=== PATIENT | male | born 1985 | race Caucasian/White ===

== ENCOUNTER 2017-04-25 09:36 | Emergency (ER) | payer OTHER ==
[~2017-04-25] VITALS: Ht 188 cm; Wt 142.9 kg
[~2017-04-25 09:36] MED LIST: CIPROFLOXACIN500 M1 PO; DOXYCYCLINE 10100 MG PO; FLEXERIL PO; KEFLEX500 MG PO; NOHOMEMEDICATIONS; NORCO 5-325 TA1 EAC1 PO; NORCO 5-325 TA1 EACH PO; PERCOCET 7.5-31 EACH PO; PREDNISONE 20 M20 MG PO; ROBITUSSIN COU118 M5 PO; TESSALON PERLE100 M1 PO; TESSALON PERLE100 MG PO; ULTRAM 50MG TAB50 MG PO; VENTOLIN HFA 1818 GM INH
[2017-04-25 09:44] VITALS: BP 140/92
[2017-04-25] MEDS ORDERED: OMEPRAZOLE 20 M20 M1 PO (09:45)
[2017-04-25] MEDS ORDERED: UNICOMPLEX M TA1 TA1 PO (09:45)
[2017-04-25] MEDS ORDERED: ALEVE220 MG PO (09:46)
[2017-04-25] MEDS ORDERED: HYDROCODON-ACE1 EAC7 PO (09:51)
[2017-04-25] MEDS ORDERED: AZITHROMYCIN 2250 MG PO (09:51)
== END 2017-04-25 10:06 | disposition home or self-care (01) ==
LOC: M.ERS 09:36
DX: H66.92 Otitis media, unspecified, left ear (principal); Z90.49 Acquired absence of other specified parts of digestive tract; Z88.0 Allergy status to penicillin; Z91.041 Radiographic dye allergy status

== ENCOUNTER 2017-07-06 21:00 | Emergency (ER) | payer OTHER ==
[~2017-07-06] VITALS: Ht 188 cm; Wt 144.2 kg
[~2017-07-06 21:00] MED LIST changes: +ALEVE220 MG PO; +AZITHROMYCIN 2250 MG PO; +HYDROCODON-ACE1 EAC7 PO; +OMEPRAZOLE 20 M20 M1 PO; +UNICOMPLEX M TA1 TA1 PO
[2017-07-06 21:44] LABS: INFLUENZA A ANTIGEN None Detected (None Detect); INFLUENZA B ANTIGEN None Detected (None Detect)
[2017-07-06] MEDS ORDERED: PROMETHAZINE V473 ML PO (21:48)
[2017-07-06] MEDS ORDERED: ZPAK PO (21:48)
[2017-07-06] MEDS ORDERED: ACETAMINOPHEN-1 EAC1 PO (21:48)
[2017-07-06] MEDS ORDERED: TESSALON PERLE100 MG PO (21:48)
[2017-07-06] MEDS ORDERED: OSELB75 PO (21:57)
[2017-07-06 22:05] VITALS: BP 147/82
== END 2017-07-06 22:07 | disposition home or self-care (01) ==
LOC: M.ERS 21:00
PROVIDERS: Physician Assistant
DX: J02.9 Acute pharyngitis, unspecified (principal); Z90.49 Acquired absence of other specified parts of digestive tract; Z88.0 Allergy status to penicillin; Z91.041 Radiographic dye allergy status

== ENCOUNTER 2018-10-19 17:25 | Emergency (ER) | payer BC ==
[~2018-10-19] VITALS: Ht 185.4 cm; Wt 143.8 kg
[~2018-10-19 17:25] MED LIST changes: +ACETAMINOPHEN-1 EAC1 PO; +OSELB75 PO; +PROMETHAZINE V473 ML PO; +ZPAK PO
[2018-10-19] MEDS ORDERED: CLEOCIN HCL150 MG PO (18:10)
[2018-10-19] MEDS ORDERED: TRAMADOL 50 MG50 MG PO (18:10)
[2018-10-19 18:24] VITALS: BP 168/95
== END 2018-10-19 18:27 | disposition home or self-care (01) ==
LOC: M.ERS 17:25
DX: K02.9 Dental caries, unspecified (principal); R03.0 Elevated blood-pressure reading, without diagnosis of hypertension; Z90.49 Acquired absence of other specified parts of digestive tract; Z88.0 Allergy status to penicillin; Z91.041 Radiographic dye allergy status